=== PATIENT | male | born 1955 | race Caucasian/White ===

== ENCOUNTER → 2018-02-15 | Outpatient (CLI) | payer BC ==
[~2018-02-15] MED LIST: ACET-1256 PO; AMOX875T PO; ASPEC325 PO; ASPECOTC PO; CLR10 PO
[2018-02-15 14:36] LABS: BASO % 0.6 %; BASO ABS # 0.03 K/uL (0-0.2); EOS % 2.3 %; EOS ABS # 0.11 K/uL (0-0.5); HEMATOCRIT 37.1 % (42-52); HEMOGLOBIN 12.4 g/dL (14.0-18.0); IG# 0.05 K/uL (0.00-0.02); LYMPH % 39.4 %; LYMPH ABS # 1.87 K/uL (1.2-3.4); MEAN CELL VOLUME 89.6 fL (80-100); MEAN CORPUSCULAR HGB CONC 33.4 g/dl (32-36); MEAN PLATELET VOLUME 9.5 fL (7.4-10.4); MONO % 7.4 %; MONO ABS # 0.35 K/uL (0.11-0.59); NEUT % 49.2 %; NEUT ABS # 2.34 K/uL (1.4-6.5); PLATELET COUNT 242 K/uL (130-400); RED CELL DISTRIBUTION WIDTH CV 14.5 % (11.5-14.5); WHITE BLOOD COUNT 4.75 K/uL (4.8-10.8)
[2018-02-15 15:59] LABS: ALBUMIN 3.6 gm/dl (3.4-5.0); ALKALINE PHOSPHATASE 70 U/L (45-117); ALT/SGPT 29 U/L (12-78); AST/SGOT 26 U/L (15-37); BLOOD UREA NITROGEN 18 mg/dl (7-18); CALCIUM 8.1 mg/dl (8.5-10.1); CARBON DIOXIDE 26 mmol/L (21-32); CREATININE 1.21 mg/dl (0.60-1.40); GLUCOSE 85 mg/dl (70-99); POTASSIUM 3.8 mmol/L (3.5-5.1); SODIUM 138 mmol/L (136-145); TOTAL PROTEIN 6.9 gm/dl (6.4-8.2)
--- NOTE | 2018-02-16 18:43 | PULMONARY FUNCTION TEST ---
Patient of Dr. Levine. Pre-bronchodilator spirometry is well within normal limits. Lung volumes and diffusion capacity were well within normal limits. Clinical correlation is needed. Bronchodilator was not administered.
[2018-02-19 16:40] LABS: ANA SCREEN TC 249X NEGATIVE (NEGATIVE); HAPTOGLOBIN TC 45427W <15 MG/DL (43-212)
== END | disposition home or self-care (01) ==
LOC: C.RC 12:17
DX: R06.00 Dyspnea, unspecified (principal); R59.9 Enlarged lymph nodes, unspecified; D64.9 Anemia, unspecified

== ENCOUNTER 2018-02-20 16:53 | Inpatient (IN) | payer BC ==
[~2018-02-20] VITALS: Ht 172.7 cm; Wt 68.8 kg
[~2018-02-20 16:53] MED LIST changes: -ACET-1256 PO
[2018-02-20] MEDS ORDERED: NITROGLYCERIN 2% OINTMENT 30GM TUBE EXT ONE (17:45)
--- NOTE | 2018-02-20 18:06 | DIAGNOSTIC IMAGING REPORT ---
CHEST ONE VIEW PORTABLE HISTORY: 62 years-old Male chest pain, WATERS acute atypical chest pain with shortness of breath COMPARISON: Chest radiograph and CTA chest 02/02/2018 TECHNIQUE: Portable AP view of the chest FINDINGS: Cardiomediastinal and hilar silhouettes are within normal limits. There are scattered bilateral calcified granulomata. Emphysema with mild interstitial coarsening. No pneumothorax, pleural effusion, focal airspace consolidation or overt pulmonary edema. Bones of the chest appear grossly intact. IMPRESSION: 1. Emphysema without acute process. 2. Prior granulomatous disease. The above report was generated using voice recognition software. It may contain grammatical, syntax or spelling errors. Electronically signed by: Aurelio Chavez M.D. 02/20/2018 6:04 PM Dictated Date/Time: 02/20/2018 6:03 PM
[2018-02-20 18:16] LABS: BASO % 0.5 %; BASO ABS # 0.03 K/uL (0-0.2); EOS % 2.8 %; EOS ABS # 0.18 K/uL (0-0.5); HEMOGLOBIN 12.4 g/dL (14.0-18.0); IG# 0.03 K/uL (0.00-0.02); LYMPH % 24.2 %; LYMPH ABS # 1.53 K/uL (1.2-3.4); MEAN CELL VOLUME 88.5 fL (80-100); MEAN CORPUSCULAR HEMOGLOBIN 29.7 pg (25-34); MEAN CORPUSCULAR HGB CONC 33.5 g/dl (32-36); MONO % 6.8 %; MONO ABS # 0.43 K/uL (0.11-0.59); NEUT % 65.2 %; NEUT ABS # 4.12 K/uL (1.4-6.5); PLATELET COUNT 214 K/uL (130-400); RED CELL DISTRIBUTION WIDTH CV 14.6 % (11.5-14.5); RED CELL DISTRIBUTION WIDTH SD 47.2 fL (36.4-46.3); WHITE BLOOD COUNT 6.32 K/uL (4.8-10.8)
[2018-02-20 18:43] LABS: ALBUMIN 3.4 gm/dl (3.4-5.0); ALKALINE PHOSPHATASE 67 U/L (45-117); ALT/SGPT 20 U/L (12-78); AST/SGOT 16 U/L (15-37); BLOOD UREA NITROGEN 13 mg/dl (7-18); CALCIUM 7.9 mg/dl (8.5-10.1); CARBON DIOXIDE 24 mmol/L (21-32); CREATININE 1.21 mg/dl (0.60-1.40); GLUCOSE 95 mg/dl (70-99); SODIUM 139 mmol/L (136-145); TOTAL PROTEIN 6.6 gm/dl (6.4-8.2)
[2018-02-20] MEDS ORDERED: FENTANYL CITRATE INJ 50 MCG/1 ML 2 ML VIAL IV STA (18:59)
[2018-02-20] MEDS ORDERED: ACET-1256 PO ×2 (19:15)
[2018-02-20] MEDS ORDERED: ASPIRIN 325 MG ECTAB PO STA (19:43)
[2018-02-20] MEDS ORDERED: ASPIRIN 324 MG CHEW ONE (20:49)
[2018-02-20] MEDS ORDERED: MoRPHine SULFATE 2 MG/ML CARP IV PRN (21:00)
[2018-02-20] MEDS ORDERED: NITROGLYCERIN 0.4 MG SL PER TAB CHARGE SL PRN (21:00)
[2018-02-20] MEDS ORDERED: ACETAMINOPHEN 325 MG TAB PO PRN (21:00)
[2018-02-20] MEDS ORDERED: MAGNESIUM HYDROXIDE SUSP 30 ML UDC PO PRN (21:00)
[2018-02-20] MEDS ORDERED: POLYETHYLENE (MIRALAX) 17 GM PACK PO PRN (21:00)
[2018-02-20] MEDS ORDERED: ONDANSETRON INJ 2 MG/ML 2 ML VIAL IV PRN (21:00)
[2018-02-20] MEDS ORDERED: ALUMINUM/MAGNESIUM/SIMETH (MAALOX MAX) 30 ML UDC PO PRN (21:00)
[2018-02-20] MEDS ORDERED: METHYLPREDNISOLONE IV 60 MG in SYRINGE 0 ML IV ONE (21:00)
[2018-02-20 21:18] VITALS: BMI 23.7
--- NOTE | 2018-02-20 21:27 | History and Physical ---
History & Physical Date & Time of Service: Feb 20, 2018 at 21:11 Chief Complaint: High Heart Rate Primary Care Physician: Jose Levine Jr,D.O. History of Present Illness Source: patient, hospital records 62 y/oM with hx of recent diverticulitis, GERD, HLD, and alcoholism (has not drank for 13 years and attends AA meetings) presents for concern of tachycardia noted today. Reports talking on the phone to a friend about his 's ovarian cancer and poor condition when he noticed his HR increase to 140s on his fit bit. He figured it was probably from being a little upset but noticed his HR increase again to 140 when he was at the office later today. He also felt a little flushed and had some mild chest discomfort so he had his associate drive him to the ED. Tachycardia associated with very mild lightheadedness, mid-chest/sternal chest discomfort and exertional fatigue. Denies any sob at rest. Pt reports hx of recent poor health starting about 2 months ago with an episode of shingles for which he saw his PCP at which point he also started to notice some fatigue and exertional dyspnea. Pt reports running 3-5 miles every other day but started to notice he could not keep pace. PCP checked blood work which was concerning for clotting and he had a lung CT which showed no blood clots but masses on his lungs which were benign in nature. PCP ordered endoscopy/ colonoscopy but he need to see pulm first per insurance. In the meantime, he also had a normal PFT and a stress echo. He has felt very tired and not run for about 2.5 weeks. He feels tired even climbing a flight of stairs now. Currently taking Augmentin for a diverticulitis episode diagnosed here last Monday. Most recent car trip 1.5 weeks ago for 2.5 hours. Has been resting more due to fatigue and back soreness (pulled a muscle during CT scan recently) ED course: received aspirin 325mg x 1, nitro paste, and fentanyl IV 50mcg with no significant improvement in tachycardia. 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[employer]) Immunizations History of Influenza Vaccine: No History of Tetanus Vaccine?: Yes Tetanus Immunization Date: Aug 19, 2008 History of Pneumococcal: No History of Hepatitis B Vaccine: No Allergies Coded Allergies: No Known Allergies (Verified , NKDA, 11/25/11) Home Medications Scheduled Amoxicillin & Pot Clavulanate (Augmentin 875-125 mg), 875 MG PO BID Loratadine (Claritin), 10 MG PO DAILY PRN Scheduled PRN Acetaminophen (Tylenol), 500 MG PO TID PRN for Pain Review of Systems Constitutional: + fatigue, No fever, No chills Respiratory: + dyspnea on exertion, No cough, No shortness of breath Cardiovascular: + chest pain (chest discomfort - mild), + palpitations Abdomen: No pain, No nausea, No vomiting, No diarrhea, No constipation Genitourinary - Male: No dysuria Physical Exam Vital Signs Date Time Temp Pulse Resp B/P (MAP) Pulse Ox O2 Delivery O2 Flow Rate FiO2 02/20/18 20:03 103 22 02/20/18 20:01 116/68 02/20/18 19:58 98 19 02/20/18 19:53 99 22 02/20/18 19:48 101 20 02/20/18 19:43 101 22 98/60 02/20/18 19:23 93 16 92 02/20/18 19:08 101 14 92 02/20/18 19:01 105/66 02/20/18 18:53 95 12 94 02/20/18 18:38 99 13 93 02/20/18 18:36 107 02/20/18 18:35 110 16 110/79 94 Room Air 02/20/18 18:31 110/79 02/20/18 18:30 95 18 118/76 94 02/20/18 18:28 118/76 02/20/18 18:24 86 02/20/18 18:11 96 Room Air 02/20/18 18:10 78 12 129/71 94 Room Air 02/20/18 18:09 129/71 02/20/18 18:09 95 Room Air 02/20/18 17:04 36.7 87 20 120/72 99 Room Air General Appearance: + pertinent finding (appears fatigued and working hard to communicate) Head: normocephalic, atraumatic Eyes: normal inspection ENT: hearing grossly normal Respiratory/Chest: lungs clear, normal breath sounds, no respiratory distress Cardiovascular: regular rate, rhythm, no murmur Abdomen/GI: normal bowel sounds, non tender, soft Extremities/Musculoskelatal: no calf tenderness, no pedal edema Neurologic/Psych: alert, oriented x 3 Skin: normal color, warm/dry Diagnostics Laboratory Results Results Past 24 Hours Test 02/20/18 17:54 Range/Units White Blood Count 6.32 4.8-10.8 K/uL Red Blood Count 4.18 4.7-6.1 M/uL Hemoglobin 12.4 14.0-18.0 g/dL Hematocrit 37.0 42-52 % Mean Corpuscular Volume 88.5 80-100 fL Mean Corpuscular Hemoglobin 29.7 25-34 pg Mean Corpuscular Hemoglobin Concent 33.5 32-36 g/dl Platelet Count 214 130-400 K/uL Mean Platelet Volume 10.0 7.4-10.4 fL Neutrophils (%) (Auto) 65.2 % Lymphocytes (%) (Auto) 24.2 % Monocytes (%) (Auto) 6.8 % Eosinophils (%) (Auto) 2.8 % Basophils (%) (Auto) 0.5 % Neutrophils # (Auto) 4.12 1.4-6.5 K/uL Lymphocytes # (Auto) 1.53 1.2-3.4 K/uL Monocytes # (Auto) 0.43 0.11-0.59 K/uL Eosinophils # (Auto) 0.18 0-0.5 K/uL Basophils # (Auto) 0.03 0-0.2 K/uL RDW Standard Deviation 47.2 36.4-46.3 fL RDW Coefficient of Variation 14.6 11.5-14.5 % Immature Granulocyte % (Auto) 0.5 % Immature Granulocyte # (Auto) 0.03 0.00-0.02 K/uL Prothrombin Time 10.0 9.0-12.0 SECONDS Prothromb Time International Ratio 1.0 0.9-1.1 Sodium Level 139 136-145 mmol/L Potassium Level 4.0 3.5-5.1 mmol/L Chloride Level 108 98-107 mmol/L Carbon Dioxide Level 24 21-32 mmol/L Anion Gap 7.0 3-11 mmol/L Blood Urea Nitrogen 13 7-18 mg/dl Creatinine 1.21 0.60-1.40 mg/dl Est Creatinine Clear Calc Drug Dose 60.4 ml/min Estimated GFR () 73.4 Estimated GFR (Non- 63.3 BUN/Creatinine Ratio 10.7 10-20 Random Glucose 95 70-99 mg/dl Calcium Level 7.9 8.5-10.1 mg/dl Magnesium Level 2.4 1.8-2.4 mg/dl Total Bilirubin 0.5 0.2-1 mg/dl Aspartate Amino Transf (AST/SGOT) 16 15-37 U/L Alanine Aminotransferase (ALT/SGPT) 20 12-78 U/L Alkaline Phosphatase 67 45-117 U/L Troponin I < 0.015 0-0.045 ng/ml Pro-B-Type Natriuretic Peptide 92 0-900 pg/ml Total Protein 6.6 6.4-8.2 gm/dl Albumin 3.4 3.4-5.0 gm/dl Globulin 3.2 2.5-4.0 gm/dl Albumin/Globulin Ratio 1.1 0.9-2 Diagnostic Radiology CHEST ONE VIEW PORTABLE HISTORY: 62 years-old Male chest pain, WATERS acute atypical chest pain with shortness of breath COMPARISON: Chest radiograph and CTA chest 02/02/2018 TECHNIQUE: Portable AP view of the chest FINDINGS: Cardiomediastinal and hilar silhouettes are within normal limits. There are scattered bilateral calcified granulomata. Emphysema with mild interstitial coarsening. No pneumothorax, pleural effusion, focal airspace consolidation or overt pulmonary edema. Bones of the chest appear grossly intact. IMPRESSION: 1. Emphysema without acute process. 2. Prior granulomatous disease. EKG 75 NSR QTc 448 Impression Assessment and Plan 62 y/oM with hx of recent diverticulitis, recent lice infestation s/p OTC treatment, GERD, HLD, and alcoholism (has not drank for 13 years and attends AA meetings) presents for concern of tachycardia noted today in the setting of progressively worsening fatigue and dyspnea on exertion x 2 months. Had an extensive work up including normal stress ECHO. Tachycardia and fatigue/ exertional sob points more towards a pulmonary (PE vs. sarcoidosis) vs. cardiac etiology. Noted to have elevated BENTLEY, ESR, CRP, and bilateral interstitial prominence on recent CT. Will consult pulm for further work up. Tachycardia with exertional dyspnea/fatigue: Likely Sarcoidosis vs. PE - recent chest CTA on 02/02: neg for PE, bilateral interstitial prominence and emphysematous changes noted (in the setting of elevated D-dimer of 780) - Elevated BENTLEY of 75 - ESR and CRP previously elevated - Ca 7.9 - ordered PTH and Vit D level - B/l LE venous doppler to rule out possible DVT - Consider repeat CTA if worsening dyspnea/tachycardia - Started on methylprednisolone 60mg IV once and 40mg IV Q8H - Pulm consult: Dr. Feliciano (business transformation consultant) for possible bronchoscopy (pt knows Dr. Vinson and requested him for long-term care - also has appt with him coming up) Diverticulitis - No WBC elevation, afebrile - Continued Augmentin started on Monday x 10 days - Monitor clinically for improvement Diet: NPO except meds for possible bronchoscopy tomorrow DVT prop: mobile/SCDs Code: full Dispo: pending further work up and clinical improvement to home Attending addendum: I have physically seen this patient, have supervised the medical residents activities, and agree with the H&P unless as otherwise noted. Assessment and Plan: Progressive shortness of breath/fatigue/tachycardia with palpitations-- Elevated d-dimer prompted an outpatient CTA 02/02 which was negative for PE. Will order lower extremity venous Dopplers today. Same CT showed suggestion of interstitial lung disease and mild emphysema. He has not noticed symptomatic improvement with an inhaler provided by his PCP. Review of workup done to this point reveals an BENTLEY level of 75 on 02/15/18, which when combined with the CTA findings, would suggest the possibility of sarcoidosis. We will do a trial of steroids beginning with Solu-Medrol 60 mg IV tonight and 40 mg IV every [address] Vinson, with whom he has an outpatient appointment already scheduled. Dr. Feliciano is business transformation consultant for Dr. Vinson at this time. He has had a negative stress echocardiogram on 02/07/18. Would still follow serial cardiac enzymes. He did have a normal pulmonary function test with Dr. Vinson on 02/16/18. Anemia-- Hemoglobin upon admission 12.4, stable within the past month, however, baseline hemoglobin 9/9/14 was 15.6. Patient reports having a normal colonoscopy approximately 10 years ago. He will need to be scheduled for a follow-up colonoscopy. Heme occult test stools. Hemoglobin may also be decreased in the setting of inflammatory disease. As discussed with patient, his declining hemoglobin may be a contributing factor to his progressive shortness of breath. Advanced Directives Existing Advance Directive: No Existing Living Will: No Existing Power of Rock Wool Insulator: No Resuscitation Status VTE Prophylaxis Will order VTE Prophylaxis: Yes Social Service Consult None Apply
[2018-02-20] MEDS ORDERED: METHYLPREDNISOLONE 125 MG VIAL IV STA (21:31)
[2018-02-20] MEDS: SODIUM CHLORIDE 0.9% 1000ML 1,000 ML IV SCH (22:33)
[2018-02-21] VITALS (7 sets, daily range): BP systolic 97–123; BP diastolic 56–77; PULSE 75–100; TEMP 36.6–36.9; O2SAT 92–96; Ht 172.7 cm; Wt 68.8 kg
[2018-02-21] MEDS: AMOXICILLIN/CLAVULANATE TAB 875 MG TAB PO SCH ×3 (00:24→17:06)
[2018-02-21] MEDS: METHYLPREDNISOLONE IV 40 MG in SYRINGE 0 ML IV SCH ×2 (05:27→13:21)
[2018-02-21] MEDS: SODIUM CHLORIDE 0.9% 1000ML 1,000 ML IV SCH ×2 (05:27→13:21)
[2018-02-21 05:28] LABS: HEMATOCRIT 32.9 % (42-52); HEMOGLOBIN 11.1 g/dL (14.0-18.0); IG# 0.02 K/uL (0.00-0.02); LYMPH % 13.6 %; LYMPH ABS # 0.72 K/uL (1.2-3.4); MEAN CELL VOLUME 88.2 fL (80-100); MEAN CORPUSCULAR HEMOGLOBIN 29.8 pg (25-34); MEAN CORPUSCULAR HGB CONC 33.7 g/dl (32-36); MEAN PLATELET VOLUME 9.6 fL (7.4-10.4); MONO % 0.8 %; MONO ABS # 0.04 K/uL (0.11-0.59); NEUT % 85.2 %; NEUT ABS # 4.53 K/uL (1.4-6.5); PLATELET COUNT 204 K/uL (130-400); RED CELL DISTRIBUTION WIDTH CV 14.5 % (11.5-14.5); RED CELL DISTRIBUTION WIDTH SD 46.7 fL (36.4-46.3); WHITE BLOOD COUNT 5.31 K/uL (4.8-10.8)
[2018-02-21 05:47] LABS: CALCIUM 7.9 mg/dl (8.5-10.1); CREATININE 1.18 mg/dl (0.60-1.40); POTASSIUM 4.6 mmol/L (3.5-5.1)
--- NOTE | 2018-02-21 06:42 | DIAGNOSTIC IMAGING REPORT ---
VENOUS DOPPLER LWR EXT BILA HISTORY: Dyspnea. Pain. Edema. tachycardia, dyspnea on exertion COMPARISON STUDY: None. FINDINGS: There is normal compressibility, flow, and augmentation within the bilateral lower extremity deep venous systems. IMPRESSION: No DVT within the right or left lower extremity. The above report was generated using voice recognition software. It may contain grammatical, syntax or spelling errors. Electronically signed by: Santos Byers M.D. 02/21/2018 6:41 AM Dictated Date/Time: 02/21/2018 6:40 AM
--- NOTE | 2018-02-21 07:13 | Family Medicine Progress Note ---
Progress Note Date of Service Feb 21, 2018. Subjective 62 y/oM with hx of recent diverticulitis, GERD, HLD, and alcoholism (has not drank for 13 years and attends AA meetings) presents for concern of tachycardia noted today. Reports talking on the phone to a friend about his 's ovarian cancer and poor condition when he noticed his HR increase to 140s on his fit bit. He figured it was probably from being a little upset but noticed his HR increase again to 140 when he was at the office later today. He also felt a little flushed and had some mild chest discomfort so he had his associate drive him to the ED. Tachycardia associated with very mild lightheadedness, mid-chest/sternal chest discomfort and exertional fatigue. Denies any sob at rest. Pt reports hx of recent poor health starting about 2 months ago with an episode of shingles for which he saw his PCP at which point he also started to notice some fatigue and exertional dyspnea. Pt reports running 3-5 miles every other day but started to notice he could not keep pace. PCP checked blood work which was concerning for clotting and he had a lung CT which showed no blood clots but masses on his lungs which were benign in nature. PCP ordered endoscopy/ colonoscopy but he need to see pulm first per insurance. In the meantime, he also had a normal PFT and a stress echo. He has felt very tired and not run for about 2.5 weeks. He feels tired even climbing a flight of stairs now. Currently taking Augmentin for a diverticulitis episode diagnosed here last Monday. Most recent car trip 1.5 weeks ago for 2.5 hours. Has been resting more due to fatigue and back soreness (pulled a muscle during CT scan recently) ED course: received aspirin 325mg x 1, nitro paste, and fentanyl IV 50mcg with no significant improvement in tachycardia. Medications Current Inpatient Medications Medications (Trade) Dose Ordered Sig/[place] Route Start Time Stop Time Status Last Admin Dose Admin Methylprednisolone Sodium Succinate 40 mg/Syringe 0.64 ml @ 1.5 mls/min Q8H IV 02/21/18 06:00 03/23/18 05:59 02/21/18 05:27 1.5 MLS/MIN Sodium Chloride 1,000 ml @ 125 mls/hr Q8H IV 02/20/18 21:00 03/22/18 20:59 7/25/18 05:27 125 MLS/HR Acetaminophen (Tylenol Tab) 650 mg Q4H PRN PO 02/20/18 21:00 03/22/18 20:59 Al Hydrox/Mg Hydrox/Simethicone (Maalox Max Susp) 15 ml Q4H PRN PO 02/20/18 21:00 03/22/18 20:59 Magnesium Hydroxide (Milk Of Magnesia Susp) 30 ml Q12H PRN PO 02/20/18 21:00 03/22/18 20:59 Ondansetron HCl (Zofran Inj) 4 mg Q6H PRN IV 02/20/18 21:00 03/22/18 20:59 Nitroglycerin (Nitrostat Tab) 0.4 mg UD PRN SL 02/20/18 21:00 03/22/18 20:59 Morphine Sulfate (MoRPHine SULFATE INJ) 2 mg Q30M PRN IV 02/20/18 21:00 03/06/18 20:59 Polyethylene (Miralax Powder Packet) 17 gm DAILY PRN PO 02/20/18 21:00 03/22/18 20:59 Amoxicillin/ Clavulanate Potassium (Augmentin Tab) 875 mg BIDM PO 02/20/18 23:30 03/02/18 23:29 02/21/18 00:24 875 MG Loratadine (Claritin Tab) 10 mg DAILY PO 02/21/18 09:00 03/23/18 08:59 Objective Vital Signs Date Time Temp Pulse Resp B/P (MAP) Pulse Ox O2 Delivery O2 Flow Rate FiO2 02/21/18 04:13 36.9 79 20 97/56 (70) 96 Room Air 02/21/18 00:17 36.7 76 18 99/59 (72) 93 Room Air 02/21/18 00:00 95 Room Air 02/20/18 22:47 80 17 96/63 96 02/20/18 22:08 80 17 02/20/18 22:01 96/63 02/20/18 21:53 92 19 02/20/18 21:38 94 26 02/20/18 21:31 101/60 02/20/18 21:23 101 25 02/20/18 21:18 Room Air 02/20/18 21:08 91 21 02/20/18 21:01 90/62 02/20/18 20:53 88 21 02/20/18 20:38 91 21 02/20/18 20:32 90/64 02/20/18 20:23 94 22 02/20/18 20:08 101 15 02/20/18 20:03 103 22 02/20/18 20:01 116/68 02/20/18 19:58 98 19 02/20/18 19:53 99 22 02/20/18 19:48 101 20 02/20/18 19:43 101 22 98/60 02/20/18 19:23 93 16 92 02/20/18 19:08 101 14 92 02/20/18 19:01 105/66 02/20/18 18:53 95 12 94 02/20/18 18:38 99 13 93 02/20/18 18:36 107 02/20/18 18:35 110 16 110/79 94 Room Air 02/20/18 18:31 110/79 02/20/18 18:30 95 18 118/76 94 02/20/18 18:28 118/76 02/20/18 18:24 86 02/20/18 18:11 96 Room Air 02/20/18 18:10 78 12 129/71 94 Room Air 02/20/18 18:09 129/71 02/20/18 18:09 95 Room Air 02/20/18 17:04 36.7 87 20 120/72 99 Room Air Laboratory Results Last Resulted 02/21/18 05:12 Red Blood Count 3.73, Mean Corpuscular Volume 88.2, Mean Corpuscular Hemoglobin 29.8, Mean Corpuscular Hemoglobin Concent 33.7, Mean Platelet Volume 9.6, Neutrophils (%) (Auto) 85.2, Lymphocytes (%) (Auto) 13.6, Monocytes (%) (Auto) 0.8, Eosinophils (%) (Auto) 0.0, Basophils (%) (Auto) 0.0, Neutrophils # (Auto) 4.53, Lymphocytes # (Auto) 0.72, Monocytes # (Auto) 0.04, Eosinophils # (Auto) 0.00, Basophils # (Auto) 0.00 Last Resulted 02/21/18 05:12 Past 24 Hours Test 02/20/18 17:54 02/21/18 06:41 02/21/18 06:52 Range/Units Prothromb Time International Ratio 1.0 0.9-1.1 Prothrombin Time 10.0 9.0-12.0 SECONDS Troponin I < 0.015 0-0.045 ng/ml Creatine Kinase MB Ratio 0-3.0 Assessment and Plan 62 y/oM with hx of recent diverticulitis, recent lice infestation s/p OTC treatment, GERD, HLD, and alcoholism (has not drank for 13 years and attends AA meetings) presents for concern of tachycardia noted today in the setting of progressively worsening fatigue and dyspnea on exertion x 2 months. Had an extensive work up including normal stress ECHO. Tachycardia and fatigue/ exertional sob points more towards a pulmonary (PE vs. sarcoidosis) vs. cardiac etiology. Noted to have elevated BENTLEY, ESR, CRP, and bilateral interstitial prominence on recent CT. Will consult pulm for further work up. Tachycardia with exertional dyspnea/fatigue: Likely Sarcoidosis vs. PE - recent chest CTA on 02/02: neg for PE, bilateral interstitial prominence and emphysematous changes noted (in the setting of elevated D-dimer of 780) - Elevated BENTLEY of 75 - ESR and CRP previously elevated - Ca 7.9 - ordered PTH and Vit D level - B/l LE venous doppler to rule out possible DVT - Consider repeat CTA if worsening dyspnea/tachycardia - Started on methylprednisolone 60mg IV once and 40mg IV Q8H - Pulm consult: Dr. Feliciano (clinical documentation improvement specialist) for possible bronchoscopy (pt knows Dr. Vinson and requested him for long-term care - also has appt with him coming up) Diverticulitis - No WBC elevation, afebrile - Continued Augmentin started on Monday x 10 days - Monitor clinically for improvement Diet: NPO except meds for possible bronchoscopy tomorrow DVT prop: mobile/SCDs Code: full Dispo: pending further work up and clinical improvement to home Attending addendum: I have physically seen this patient, have supervised the medical residents activities, and agree with the H&P unless as otherwise noted. Assessment and Plan: Progressive shortness of breath/fatigue/tachycardia with palpitations-- Elevated d-dimer prompted an outpatient CTA 02/02 which was negative for PE. Will order lower extremity venous Dopplers today. Same CT showed suggestion of interstitial lung disease and mild emphysema. He has not noticed symptomatic improvement with an inhaler provided by his PCP. Review of workup done to this point reveals an BENTLEY level of 75 on 02/15/18, which when combined with the CTA findings, would suggest the possibility of sarcoidosis. We will do a trial of steroids beginning with Solu-Medrol 60 mg IV tonight and 40 mg IV every [address] Vinson, with whom he has an outpatient appointment already scheduled. Dr. Feliciano is clinical documentation improvement specialist for Dr. Vinson at this time. He has had a negative stress echocardiogram on 02/07/18. Would still follow serial cardiac enzymes. He did have a normal pulmonary function test with Dr. Vinson on 02/16/18. Anemia-- Hemoglobin upon admission 12.4, stable within the past month, however, baseline hemoglobin 04/08/14 was 15.6. Patient reports having a normal colonoscopy approximately 10 years ago. He will need to be scheduled for a follow-up colonoscopy. Heme occult test stools. Hemoglobin may also be decreased in the setting of inflammatory disease. As discussed with patient, his declining hemoglobin may be a contributing factor to his progressive shortness of breath. Resident Tracking Resident Involvement: Resident Care Provided Care Provided: [facility]
[2018-02-21 07:27] LABS: CKMB < 1.0 ng/ml (0.5-3.6)
[2018-02-21] MEDS ORDERED: LORATADINE 10 MG TAB PO SCH (09:00)
--- NOTE | 2018-02-21 13:47 | PULMONARY CONSULTATION ---
DATE OF CONSULTATION: 02/21/2018 TIME: 12:15 p.m. REPORT OF CONSULTATION: The patient was seen in room 279. He is a 62-year-old male who came to the Emergency Room yesterday because he noticed his heart rate was increased into the 140s that he had observed on his Fitbit. It should be noted that as he had observed this heart rate, he had just been on the phone with a friend discussing his 's advanced ovarian cancer. He apparently had also noticed heart rate of 141 other time later in the day. He has been feeling very fatigued. At that time his heart rate was high, he was feeling very flushed and had very mild discomfort in the anterior chest. He had some lightheadedness associated with the tachycardia. The patient has noticed increasing shortness of breath over the past few months. He has had a history of running on a fairly regular basis. He enjoys running and it is a good stress reliever. He had been running between 3 and 5 miles every other day. I could not definitively determine when he was actually running that far. In the past few months, his exercise capacity has seemingly diminished. He then found that he could not go the entire distance, but he would have to run some and walks some. He has not had any sharp chest pains, nor has he had pain definitively associated with exertion. He has no significant cough. He has had no sputum production or hemoptysis. He has had no chills, fevers or sweats. The patient spoke several times about how his energy level has decreased a lot in the past year. He has been undergoing some outpatient evaluations. On 02/02/2018, he had a CT angio of the chest done. This was related to a D-dimer that was elevated at 780. The CTA showed no evidence of pulmonary embolic disease. There was some positionally dependent atelectasis. The right hilar area appeared borderline for size. I did review the CAT scan on this date with Dr. Byers who had interpreted the scan. He thought the mediastinum really did not have any definitive lymph node enlargement. In the area of the right hilum, it is always difficult to tell where a vessel ends and where the node starts, but it appeared to be perhaps top normal. He felt there were very slight interstitial changes at the lung bases. He compared this with a CT of the abdomen done back in 2013 and he felt there was no change. The patient also had some lab studies done as an outpatient. This would include an angiotensin converting enzyme level that was slightly elevated at 75 with an upper limit of normal of 67. The patient also had a stress echo done on 02/02/2018. This showed a normal ejection fraction. No valvular disease. No ischemia. He reached a maximum of 10.1 METS. The patient had complete pulmonary function test on 02/15/2018. This showed a normal spirometry pre and post, normal lung volumes, and normal diffusion at 91%. PAST SURGICAL HISTORY: 1. Appendectomy. 2. Kidney stones, treated with lithotripsy and he had a stent placed. 3. Fracture of the left ankle. PAST PULMONARY HISTORY: None. PAST MEDICAL HISTORY: 1. Diverticulitis with a recent exacerbation in the past 1-2 weeks. 2. GERD. 3. Hypertension. 4. Alcohol abuse - currently off alcohol for 13 years and regularly attends AA meetings. 5. Herpes zoster affecting the right posterolateral chest 2 months ago. 6. Depression. 7. The finding of lice recently. However, this was observed only by the patient himself, but he was convinced that he did have lice. He did treat with appropriate shampoos. FAMILY HISTORY: Mother , age 58, cirrhosis and alcohol abuse. Father , age 73, lymphoma. ALLERGIES: No known allergies. SOCIAL HISTORY: Tobacco, none since approximately age 29. He smoked approximately 1.5 packs per day for 12 years. ETOH - none for 13 years as noted above. REVIEW OF SYSTEMS: In addition to the above-mentioned complaints, the patient states his appetite and weight have been stable. He has had a slight rash on the upper chest posteriorly. He had the abdominal pain for which he went to the Emergency Room and was diagnosed with diverticulitis. He states he is much better in that regard. He denies any urinary symptoms. The remainder of the review of systems is otherwise negative. 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 PHYSICAL EXAMINATION: GENERAL: The patient is a very pleasant 62-year-old male who was cooperative, alert and oriented. He did look to be very anxious and stressed. It just so happens that his is also in the hospital at this time. VITAL SIGNS: Temperature is 36.7. He has had no fevers since admission. HEENT: Pupils were reactive to light. Nares were clear. Mouth exam was unremarkable. NECK: Palpation of the neck reveals no lymph nodes or masses. CHEST: The chest was of normal expansion and development. Heart rate was 96 per minute. Rhythm was regular. Blood pressure 97/60. LUNGS: Lung hill were clear bilaterally. There was good aeration. No wheezes, rales, or rhonchi were heard. ABDOMEN: Soft. Bowel sounds were normal. There was no tenderness to palpation, masses, or organomegaly. EXTREMITIES: Showed no cyanosis, clubbing or edema. IMAGING DATA: Venous Doppler done yesterday showed no evidence of DVT. Chest x-ray showed prior granulomatous disease. There was a suggestion of emphysema, although I do not believe that was definitively avid on CAT scan. There was mild interstitial prominence. LABORATORY DATA: Electrolytes showed sodium 140, potassium 4.6, chloride 111, bicarbonate 25. Vitamin D level was 25.1, which is decreased. Troponin was negative. ProBNP was 92. Liver functions were normal. Hep C was negative. INR was 1. White count today is 5.31. Hemoglobin 11.1. Yesterday's hemoglobin was 12.4. Platelets are 204,000. IMPRESSION: 1. Shortness of breath and tachycardia - undetermined origin. 2. Granulomatous lung disease - at least 2 granulomas seen on CAT scan. 3. Mild increased interstitial markings associated with slight increase in angiotensin converting enzyme level - cannot entirely exclude sarcoid. COMMENTS AND RECOMMENDATIONS: The patient may or may not have sarcoidosis. Either way, it does not seem like that problem would be accounting for the significant dyspnea he has been noticing. The pulmonary functions were totally normal. His oxygenation has been normal. As noted, the patient is under a tremendous amount of stress and this may play some role in his symptoms. I did review his CAT scan with our radiologist as noted above. Although he had a negative stress echo, perhaps a cardiac evaluation is indicated. I will defer this to the hospitalist team to make that call. He has a tentative appointment to follow up with Dr. Vinson. I would certainly suggest that or perhaps even move the appointment up somewhat. Again, I do not think that a questionable diagnosis of sarcoid would be presenting quite this way. Pulmonary emboli would seem to be extremely unlikely based upon the negative CT angio of the chest. His TSH done recently was slightly elevated at 5.49. Once again, I would not think that that would cause tachycardia or dyspnea. He did have a protein electrophoresis done that showed some increase in alpha-1 globulin. The study reported consideration to checking serum free light chains or urine immunofixation if plasma cell dyscrasias are possible clinical diagnoses. Once again, I will defer this to the hospitalist team. It should be noted that his AUSTIN was negative and his rheumatoid factor was negative. Will follow the patient with you and see how his course unfolds. I am not convinced that he needs methylprednisolone. Likewise, I do not feel that an urgent bronchoscopy with EBUS is necessary at this time. I believe some resolution of his symptoms should occur before that would be considered. A two step is considered before d/c. JAD
--- NOTE | 2018-02-21 16:11 | CARDIOLOGY CONSULTATION ---
DATE OF CONSULTATION: 02/21/2018 PERTINENT HISTORY: Mr. Matute is a 62-year-old white male admitted yesterday because of progressive shortness of breath and an elevated heart rate. This consultation was ordered to assist in management. Last evening, the patient was on the telephone discussing the advanced ovarian carcinoma recently diagnosed in his with a friend. He was quite emotional and noticed his heart rate to be 140 beats per minute on his "fit bit." The patient became overly concerned and presented to the Emergency Room for further evaluation. At no time was he experiencing palpitations. The patient has noted progressive exertional dyspnea over the last 2 months. Because of his complaints, a stress echocardiogram was performed on 02/02/2018 which was normal at 10.1 METS and peak heart rate of greater than 100% predicted maximum. The patient was on the treadmill for over 9 minutes. He also had a CT scan of the chest performed that same day, which noted no evidence of pulmonary emboli but did note some interstitial lung disease and 2 granulomas. An BENTLEY level was elevated suggesting the possibility of sarcoidosis. The patient did present to the Emergency Room on 02/18/2018 with a bout of acute diverticulitis. He is currently finishing antibiotic course. The patient has never experienced syncope, presyncope, PND, orthopnea, palpitations, lower extremity edema, or claudication. Currently, patient is resting comfortably in bed, without complaints. Of note, he becomes tearful when discussing his 's medical condition. PAST MEDICAL HISTORY: 1. Hypercholesterolemia. 2. Emphysema. 3. GERD. 4. Diverticulitis. 5. History of appendectomy. 6. History of herpes zoster. MEDICATIONS: 1. Methylprednisolone 40 mg IV q.8 h. 2. Claritin 10 mg daily. 3. Augmentin 875 mg b.i.d. ALLERGIES: None. SOCIAL HISTORY: The patient is and lives with his . 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 Quit tobacco use 30 years ago. He has not used alcohol in 13 years due to his history of abuse. FAMILY HISTORY: Mother in her late 50s from complications of a motor vehicle accident. She was an alcoholic. Father in his young 70s from a lymphoma. Siblings are healthy. No early coronary artery disease. REVIEW OF SYSTEMS: A 10-point review of systems was completed and negative except for that described above. PHYSICAL EXAMINATION: GENERAL: This is a well-developed and well-nourished white male, in no acute distress. VITAL SIGNS: Blood pressure is 123/77, with a regular pulse of 80, respiratory rate is 16, the patient is afebrile at 36.6 degrees Celsius, saturation is 92% on room air. HEENT: Negative. NECK: Supple, with full carotid upstrokes, no carotid bruits. Jugular venous pressure is flat at 90 degrees. There is no thyromegaly. CARDIOVASCULAR: Exam reveals a regular rhythm, with normal S1 and S2. Heart sounds are distant. No obvious murmurs. RESPIRATORY: Lungs are clear without rales, rhonchi, or wheezes. GASTROINTESTINAL: Abdomen is soft, nontender, without bruits. VASCULAR: Extremities reveal intact radial artery and posterior tibial pulses bilaterally. There is no peripheral edema. DATA: CBC notes a hemoglobin of 11.1, hematocrit 32.9, white count 5.3, platelet count 204,000. Electrolytes note a sodium of 140, potassium 4.6, chloride 111, bicarbonate 25, BUN 14, creatinine 1.18, glucose 143. Two troponin I levels are undetectable at less than 0.015. BNP is normal at 92. CK is 46, with an undetectable MB fraction. IMAGING: Chest x-ray notes emphysematous changes and scattered calcified granulomas. EKG notes sinus rhythm, with an occasional PVC. IMPRESSION: Mr. Matute was admitted with progressive shortness of breath and a self-proclaimed tachycardia. Doubt that his progressive shortness of breath is related to coronary ischemia as she had a completely normal stress echocardiogram done on 02/02/2018. The baseline echocardiogram showed no evidence of valvular heart disease. He is currently undergoing pulmonary workup for the possibility of sarcoidosis or other interstitial processes. PLAN: 1. Continue current medications. 2. Pulmonary workup as scheduled. 3. No indication for further cardiac testing. Specifically no indication for cardiac catheterization.
[2018-02-21 16:23] LABS: CKMB < 1.0 ng/ml (0.5-3.6)
--- NOTE | 2018-02-21 19:04 | Discharge Instructions ---
Discharge Instructions Date of Service Feb 21, 2018. Admission Reason for Admission: Tachycardia Discharge Discharge Diagnosis / Problem: Evaluation of Tachycardia Discharge Goals Goal(s): Diagnostic testing Activity Recommendations Activity Limitations: resume your previous activity . Instructions / Follow-Up Instructions / Follow-Up During this admission you were evaluated for Fast Heart rate, Tachycardia Per Cardiology: 1. Continue current medications. 2. Pulmonary workup as scheduled. 3. No indication for further cardiac testing. Specifically no indication for cardiac catheterization. Per Pulmonary: an urgent bronchoscopy with EBUS is necessary at this time. Please follow up with Dr. Levine within a week Please resume normal activity as tolerated and employ stress management techniques discussed in the hospital Should your symptoms return or worsen, please contact your primary care physician or precede directly to the E.R. It was a pleasure participating in your care. Have a wonderful summer Current Hospital Diet Patient's current hospital diet: AHA Diet (Heart Healthy) Discharge Diet Recommended Diet: Regular Diet Procedures Procedures Performed: U/S for DVT: No DVT within the right or left lower extremity Chest X-Ray:Emphysema without acute process, Prior granulomatous disease. Pending Studies Studies pending at discharge: no Laboratory Results Lipid Panel Test 02/02/18 08:31 Range/Units Triglycerides Level 145 0-150 mg/dl Cholesterol Level 233 H 0-200 mg/dl HDL Cholesterol 39 mg/dl Cholesterol/HDL Ratio 6.0 LDL Cholesterol, Calculated 165 mg/dl Medical Emergencies . Who to Call and When: Medical Emergencies: If at any time you feel your situation is an emergency, please call 911 immediately. . Non-Emergent Contact Non-Emergency issues call your: Primary Care Provider . . "Provider Documentation" section prepared by Lenin Fisher. .
--- NOTE | 2018-02-21 19:16 | Discharge Summary ---
Discharge Summary Date of Service Feb 21, 2018. Discharge Summary Admission Date: Feb 20, 2018 at 21:10 Discharge Date: Feb 21, 2018 Discharge Disposition: Home Principal Diagnosis: Evaluation of tachycardia Immunizations: Have You Had Influenza Vaccine: No History of Tetanus Vaccine?: Yes Tetanus Immunization Date: Aug 19, 2008 History of Pneumococcal: No History of Hepatitis B Vaccine: No Procedures: U/S for DVT: No DVT within the right or left lower extremity Chest X-Ray:Emphysema without acute process, Prior granulomatous disease. Consultations: Cardiology: 1. Continue current medications. 2. Pulmonary workup as scheduled. 3. No indication for further cardiac testing. Specifically no indication for cardiac catheterization. Pulmonology: 1. Shortness of breath and tachycardia - undetermined origin. 2. Granulomatous lung disease - at least 2 granulomas seen on CAT scan. 3. Mild increased interstitial markings associated with slight increase in angiotensin converting enzyme level - cannot entirely exclude sarcoid. COMMENTS AND RECOMMENDATIONS: The patient may or may not have sarcoidosis. Either way, it does not seem like that problem would be accounting for the significant dyspnea he has been noticing. The pulmonary functions were totally normal. His oxygenation has been normal. As noted, the patient is under a tremendous amount of stress and this may play some role in his symptoms. I did review his CAT scan with our radiologist as noted above. Although he had a negative stress echo, perhaps a cardiac evaluation is indicated. I will defer this to the hospitalist team to make that call. He has a tentative appointment to follow up with Dr. Vinson. I would certainly suggest that or perhaps even move the appointment up somewhat. Again, I do not think that a questionable diagnosis of sarcoid would be presenting quite this way. Pulmonary emboli would seem to be extremely unlikely based upon the negative CT angio of the chest. His TSH done recently was slightly elevated at 5.49. Once again, I would not think that that would cause tachycardia or dyspnea. He did have a protein electrophoresis done that showed some increase in alpha-1 globulin. The study reported consideration to checking serum free light chains or urine immunofixation if plasma cell dyscrasias are possible clinical diagnoses. Once again, I will defer this to the hospitalist team. It should be noted that his AUSTIN was negative and his rheumatoid factor was negative. Will follow the patient with you and see how his course unfolds. I am not convinced that he needs methylprednisolone. Likewise, I do not feel that an urgent bronchoscopy with EBUS is necessary at this time. I believe some resolution of his symptoms should occur before that would be considered. A two step is considered before d/c. Medication Reconciliation Continued Medications: Acetaminophen (Tylenol) 500 Mg Tab 500 MG PO TID PRN for Pain, TAB Amoxicillin & Pot Clavulanate (Augmentin 875-125 mg) 1 Tab Tab 875 MG PO BID for 10 Days, #20 TAB Loratadine (Claritin) 10 Mg Tab 10 MG PO DAILY PRN, 0 Refills Discharge Exam Pt was resting comfortably when I examined him this a.m. no complaints overnight. Was NPO for possible bronchoscopy, deferred to outpt workup per pulmonology. Resumed diet and tolerated it well voiding and stooling appropriately. Review of Systems: Constitutional: No fever, No chills, No sweats, No weakness Respiratory: No cough, No sputum, No wheezing, No shortness of breath Cardiovascular: No chest pain, No edema, No claudication, No palpitations Abdomen: No pain, No nausea, No vomiting, No diarrhea, No constipation Musculoskeletal: No joint pain Neurologic: No weakness, No numbness/tingling Psychiatric: + anxiety, No depression symptoms Endocrine: No fatigue, No excessive thirst, No excessive urination Hematologic / Lymphatic: No abnormal bleeding/bruising Integumentary: No rash, No itch, No new/changing skin lesions Physical Exam: General Appearance: WD/WN, no apparent distress Eyes: normal inspection, sclerae normal ENT: hearing grossly normal Neck: supple, no adenopathy, thyroid normal, no JVD, no carotid bruits, trachea midline Respiratory/Chest: chest non-tender, lungs clear, normal breath sounds, no respiratory distress, no accessory muscle use Cardiovascular: regular rate, rhythm, no edema, no gallop, no JVD, no murmur , normal peripheral pulses Abdomen / GI: normal bowel sounds, non tender, soft, no organomegaly, no pulsatile mass Extremities: normal inspection, no calf tenderness, normal capillary refill , no pedal edema Neurologic/Psychiatric: alert, normal mood/affect, oriented x 3 Skin: normal color, warm/dry, no rash Lymphatic: no adenopathy Hospital Course 62 y/oM with hx of recent diverticulitis, recent lice infestation s/p OTC treatment, GERD, HLD, and alcoholism (has not drank for 13 years and attends AA meetings) presents for concern of tachycardia noted today in the setting of progressively worsening fatigue and dyspnea on exertion x 2 months. Had an extensive work up including normal stress ECHO. Tachycardia and fatigue/ exertional sob points more towards a pulmonary (PE vs. sarcoidosis) vs. cardiac etiology. Noted to have elevated BENTLEY, ESR, CRP, and bilateral interstitial prominence on recent CT. Will consult pulm for further work up. Tachycardia with exertional dyspnea/fatigue: Likely Sarcoidosis vs. PE - had recent chest CTA on 02/02: neg for PE, bilateral interstitial prominence and emphysematous changes noted (in the setting of elevated D-dimer of 780) - His BENTLEY was Elevated to 75 - ESR and CRP previously elevated - On admission Ca 7.9 - PTH 68.1 -Vit D 25.1 - B/l LE venous doppler showed no DVT - Was Started on methylprednisolone 60mg IV once and 40mg IV Q8H and D/Cd per pulm - Pulm was consulted see consultation section Diverticulitis - pt had no WBC elevation and was afebrile on this admission - Continued Augmentin started on Monday x 10 days Diet: Regular DVT prop: mobile/SCDs Code: full Dispo: Home Resident Physician Supervision Note: I interviewed and examined the patient. Discussed with Dr. Fisher and agree with findings and plan as documented in the note. Any exceptions or clarifications are listed here: None Documented By: Josh Stringer feeling ok d/w pulmonary, d/w cardiology, extensive d/w pt vitals noted nad breathing unlabored no pallor or icterus WATERS/tachycardia w exertion -fortunately w extensive w/u all worrisome pathology appears to have been effectively ruled out -safe for home -most likely stress/fatigue related due to life circumstances --> safe/stable for home, outpt f/u Total Time Spent: Greater than 30 minutes This includes examination of the patient, discharge planning, medication reconciliation, and communication with other providers. Discharge Instructions Please refer to the electronic Patient Visit Report (Discharge Instructions) for additional information. Follow-Up Dr. Levine Additional Copies To Jose Levine Jr,D.O. Resident Tracking Resident Involvement: Resident Care Provided Care Provided: [facility]
--- NOTE | 2018-02-27 14:19 | EMERGENCY ROOM VISIT NOTE ---
History Report prepared by Sergey: Ambreen Cohen Under the Supervision of: Dr. Maylin Padilla D.O. First contact with patient: 17:13 Chief Complaint: TACHYCARDIA Stated Complaint: HIGH HEART RATE History of Present Illness The patient is a 62 year old male who presents to the Emergency Room with complaints of worsening tachycardia starting 2 weeks ago. The patient states that the patient was concerned 2 months ago when he went to his PCP with shingles and was struggling to run at his normal pace. He states that he usually ran between 3-5 miles every other day. He reports that they checked his blood work and it showed that he had the potential for clotting, so they did a CT of the lungs. He states that it showed no pulmonary issues, but showed masses on his lungs that were benign. The patient states that he then was scheduled an appointment with GI to have an endoscopy and colonoscopy done, but they wanted a pulmonary consult first. He states that he did a pulmonary function test that came back with results slightly above normal, but reports that being a runner, it was considered low. He states that he then was scheduled for an EKG and cardiac stress test, but states that 3 days before went for a run and couldn't even make it 20 yards before his heart rate was in the 130s. The patient states that they went ahead with the testing and it was normal. The patient states that he has still been having exertional shortness of breath and now has lightheadedness with it. He reports that he no longer runs. He states that today he was talking on the phone to a friend about his 's ovarian cancer and how she is not doing well. He states that he was upset at the time. He reports that he went back to his office after getting off the phone and sat down when he all of a sudden felt flushed. He states that his heart was beating at 140 bpm just sitting there so he got an associate to bring him to the ED. He states that he could feel a light pressure in the center of his chest when this episode occurred. The patient complains of tingling in his face and becoming fatigued quickly. He notes that he is currently taking antibiotics for a diverticulitis episode that he was here on Monday for. Source of History: patient Onset: 2 weeks ago Position: chest Quality: pressure, other (tachycardia) Timing: worsening Modifying Factors (Worsening): exertion Associated Symptoms: + SOB, + fatigue Note: The patient complains of tingling in his face, feeling flushed, and lightheadedness. Review of Systems See HPI for pertinent positives & negatives. A total of 10 systems reviewed and were otherwise negative. Past Medical & Surgical Medical Problems: (1) Acute Appendicitis Nos (2) Tachycardia Family History FHx: cancer Social History Smoking Status: Former Smoker Alcohol Use: none Marital Status: Housing Status: lives with significant other Occupation Status: employed Current/Historical Medications Scheduled Amoxicillin & Pot Clavulanate (Augmentin 875-125 mg), 875 MG PO BID Loratadine (Claritin), 10 MG PO DAILY PRN Scheduled PRN Acetaminophen (Tylenol), 500 MG PO TID PRN for Pain Allergies Coded Allergies: No Known Allergies (Verified , NKDA, 11/25/11) Physical Exam Vital Signs Date Time Temp Pulse Resp B/P (MAP) Pulse Ox O2 Delivery O2 Flow Rate FiO2 02/20/18 21:08 91 21 02/20/18 21:01 90/62 02/20/18 20:53 88 21 02/20/18 20:38 91 21 02/20/18 20:32 90/64 02/20/18 20:23 94 22 02/20/18 20:08 101 15 02/20/18 20:03 103 22 02/20/18 20:01 116/68 02/20/18 19:58 98 19 02/20/18 19:53 99 22 02/20/18 19:48 101 20 02/20/18 19:43 101 22 98/60 02/20/18 19:23 93 16 92 02/20/18 19:08 101 14 92 02/20/18 19:01 105/66 02/20/18 18:53 95 12 94 02/20/18 18:38 99 13 93 02/20/18 18:36 107 02/20/18 18:35 110 16 110/79 94 Room Air 02/20/18 18:31 110/79 02/20/18 18:30 95 18 118/76 94 02/20/18 18:28 118/76 02/20/18 18:24 86 02/20/18 18:11 96 Room Air 02/20/18 18:10 78 12 129/71 94 Room Air 02/20/18 18:09 129/71 02/20/18 18:09 95 Room Air 02/20/18 17:04 36.7 87 20 120/72 99 Room Air Physical Exam GENERAL: alert, well appearing, well nourished, no distress, non-toxic EYE EXAM: normal conjunctiva, PERRL and EOM's grossly intact OROPHARYNX: no exudate, no erythema, lips, buccal mucosa, and tongue normal and mucous membranes are moist NECK: supple, no nuchal rigidity, no adenopathy, non-tender LUNGS: Clear to auscultation. Normal chest wall mechanics HEART: no murmurs, S1 normal and S2 normal ABDOMEN: abdomen soft, non-tender, normo-active bowel sounds, no masses, no rebound or guarding. BACK: Back is symmetrical on inspection and there is no deformity, no midline tenderness, no CVA tenderness. SKIN: no rashes and no bruising UPPER EXTREMITIES: upper extremities are grossly normal. LOWER EXTREMITIES: No pitting edema. NEURO EXAM: Normal sensorium, cranial nerves II-XII grossly intact, normal speech, no gross weakness of arms, no gross weakness of legs. Medical Decision & Procedures ER Provider Diagnostic Interpretation: Radiology results have been interpreted by the radiologist and reviewed by me. CHEST ONE VIEW PORTABLE HISTORY: 62 years-old Male chest pain, WATERS acute atypical chest pain with shortness of breath COMPARISON: Chest radiograph and CTA chest 02/02/2018 TECHNIQUE: Portable AP view of the chest FINDINGS: Cardiomediastinal and hilar silhouettes are within normal limits. There are scattered bilateral calcified granulomata. Emphysema with mild interstitial coarsening. No pneumothorax, pleural effusion, focal airspace consolidation or overt pulmonary edema. Bones of the chest appear grossly intact. IMPRESSION: 1. Emphysema without acute process. 2. Prior granulomatous disease. The above report was generated using voice recognition software. It may contain grammatical, syntax or spelling errors. Electronically signed by: Aurelio Chavez M.D. 02/20/2018 6:04 PM Dictated Date/Time: 02/20/2018 6:03 PM Laboratory Results Test 02/20/18 17:54 Prothrombin Time 10.0 SECONDS (9.0-12.0) Prothromb Time International Ratio 1.0 (0.9-1.1) Magnesium Level 2.4 mg/dl (1.8-2.4) Total Bilirubin 0.5 mg/dl (0.2-1) Aspartate Amino Transf (AST/SGOT) 16 U/L (15-37) Alanine Aminotransferase (ALT/SGPT) 20 U/L (12-78) Alkaline Phosphatase 67 U/L (45-117) Pro-B-Type Natriuretic Peptide 92 pg/ml (0-900) Total Protein 6.6 gm/dl (6.4-8.2) Albumin 3.4 gm/dl (3.4-5.0) Globulin 3.2 gm/dl (2.5-4.0) Albumin/Globulin Ratio 1.1 (0.9-2) Hepatitis C Antibody Screen NEG (NEG) Laboratory results per my review. Medications Administered Medications (Trade) Dose Ordered Sig/[place] Route Start Time Stop Time Status Last Admin Dose Admin Nitroglycerin (Nitroglycerin 2% Oint) 1 inch NOW ONCE EXT 02/20/18 17:45 02/20/18 17:46 DC 02/20/18 17:45 1 INCH Fentanyl Citrate (Fentanyl Inj) 50 mcg NOW STAT IV 02/20/18 18:59 02/20/18 19:00 DC 02/20/18 19:31 50 MCG Aspirin (Aspirin Chew) 324 mg STK-MED ONCE .ROUTE 02/20/18 20:49 02/20/18 20:50 DC 02/20/18 20:51 324 MG Sodium Chloride 1,000 ml @ 125 mls/hr Q8H IV 02/20/18 21:00 02/21/18 19:48 DC 02/21/18 13:21 125 MLS/HR ECG Per My Interpretation Indication: chest pain Rate (beats per minute): 75 Rhythm: sinus rhythm Findings: PVC, no acute ischemic change, other (normal axis, normal intervals) ED Course 1719: The patient was evaluated in room B9. A complete history and physical exam was performed. 1744: Ordered Nitroglycerin 1 inch EXT. 1851: I reevaluated the patient and he is doing well. I updated her on her test results. 1858: Ordered Fentanyl Citrate 50 mcg IV. 1942: Ordered Aspirin 325 mg PO. 2028: I reviewed the patient's case with Dr. Simeon- [facility] Hospitalist. He will evaluate the patient for further management. Medical Decision Differential diagnoses includes but is not limited to acute coronary syndrome, myocardial infarction, pericarditis, pulmonary embolus, aortic dissection, pneumonia, pneumothorax, musculoskeletal, shingles, esophageal. Patient was to risk factors for coronary artery disease, and worsening symptoms over the last several weeks. Mother is likely component of stress and anxiety given his 's illness this is not a new diagnosis and I am not convinced entirely explains the recent worsening of symptoms. Patient's outpatient labs and imaging were reviewed and are reassuring although I discussed with patient he should keep his appointment with pulmonology for additional evaluation given the findings on the CT. Did discuss with the patient possible differential diagnosis for his symptoms. Have a lower suspicion for acute vascular etiology , pericardial effusion, pericarditis, or PE. No recent symptoms or findings to suggest occult infectious etiology. Patient agreeable with plan for observation and possible additional consultation. Patient was given some medications here to help with symptoms as he was having persistent dull chest pain, was not short of breath except with exertion. No ectopy noted on telemetry during observation the emergency room. Medication Reconcilliation Current Medication List: was personally reviewed by me Blood Pressure Screening Patient's blood pressure: Normal blood pressure Blood pressure disposition: Did not require urgent referral Consults Time Called: 1858 Consulting Physician: Dr. Jason CHARLES Hospitalist Returned Call: 2028 I reviewed the patient's case with Dr. Jason CHARLES Hospitalist. He will evaluate the patient for further management. Impression Primary Impression: Chest pain Additional Impressions: Dyspnea on exertion Palpitations Scribe Attestation The scribe's documentation has been prepared under my direction and personally reviewed by me in its entirety. I confirm that the note above accurately reflects all work, treatment, procedures, and medical decision making performed by me. Departure Information Dispostion Being Evaluated By Hospitalist Referrals Jose Levine Jr,D.O. (PCP) Patient Instructions My [facility] Problem Qualifiers Primary Impression: Chest pain Chest pain type: unspecified Qualified Codes: R07.9 - Chest pain, unspecified
== END 2018-02-21 19:47 | disposition home or self-care (01) | DRG 309 ==
LOC: C.EDB 16:54 → C.MED 21:10 → ENRESERV 22:28
PROVIDERS: ADMIT Hospitalist; ATTEND Family Medicine
DX: R00.0 Tachycardia, unspecified (principal); K57.92 Diverticulitis of intestine, part unspecified, without perforation or abscess without bleeding; D86.9 Sarcoidosis, unspecified; J43.9 Emphysema, unspecified; Z79.2 Long term (current) use of antibiotics